=== PATIENT | female | born 1985 | race Caucasian/White ===

== ENCOUNTER 2018-09-17 17:53 | Outpatient (CLI) | payer MEDICAID ==
--- NOTE | 2018-09-17 20:24 | Non Stress Test Report ---
Non Stress Test Datetime Report Generated by CPN: 09/17/2018 20:24 DEMOGRAPHIC EGA NST: 35.4 INDICATION Indication for Study: Intrauterine Growth Restriction MONITORING Monitor Explained: Monitor Explained; Test Explained; Patient Verbalized Understanding Time on Monitor: 09/17/2018 18:07 Time off Monitor: 09/17/2018 19:45 NST Duration: 98 NST INTERVENTIONS NST Interventions: PO Hydration; Reposition Patient Physician Notified NST: DrBill CaldwellPat BABY A: [id number] BABY A Movement : Present Contraction Frequency : 0 FHR Baseline : 145 Accelerations : 15X15 Decelerations : None Variability : Moderate 6-25bpm NST Review: Meets Criteria for Reactive NST NST Review and Verified By : Jean Marie Wells RN Results: Reactive NST COMMENTS NST Comments: Patient had a BPP as well which was 8 out of 8 NST REPORT Report Trigger: Send Report
--- NOTE | 2018-09-17 20:54 | RADIOLOGY REPORT (SQ) ---
EXAM DESCRIPTION: US BIOPHYSICAL PROFILE WITHOUT NON STRESS TEST COMPLETED DATE/TME: 09/17/2018 00:00 CLINICAL HISTORY: 33 years, Female, non reactive NST, BPP COMPARISON: TECHNIQUE: LIMITATIONS: None. FINDINGS: Biophysical profile score: tone: 2. movement: 2. breathin. Fluid volume: 2. Biophysical profile score is 8/8. heart rate 147 bpm. Presentation is cephalic. IMPRESSION: Normal exam. copyright 2010 [employer]- All Rights Reserved
== END 2018-09-17 20:17 | disposition home or self-care (01) ==
LOC: LC 17:53
PROVIDERS: ATTEND Student in an Organized Health Care Education/Training Program
DX: Z34.93 Encounter for supervision of normal pregnancy, unspecified, third trimester (principal)
CPT/HCPCS: 76819

== ENCOUNTER 2018-10-04 13:49 | Outpatient (CLI) | payer MEDICAID ==
--- NOTE | 2018-10-04 14:26 | Non Stress Test Report ---
Non Stress Test Datetime Report Generated by CPN: 10/04/2018 14:25 DEMOGRAPHIC EGA NST: 38.0 INDICATION Indication for Study: Intrauterine Growth Restriction Indication for Study (NST) Other: IUGR MONITORING Monitor Explained: Monitor Explained; Test Explained; Patient Verbalized Understanding Time on Monitor: 10/04/2018 13:58 Time off Monitor: 10/04/2018 14:19 NST Duration: 21 NST INTERVENTIONS NST Interventions: PO Hydration; Reposition Patient Physician Notified NST: Amado BABY A: [id number] BABY A Contraction Frequency : 0 FHR Baseline : 135 Accelerations : 15X15 Decelerations : None Variability : Moderate 6-25bpm NST Review: Meets Criteria for Reactive NST NST Review and Verified By : SVance, RNC NST Results: Reactive NST REPORT Report Trigger: Send Report
== END 2018-10-04 14:22 | disposition home or self-care (01) ==
LOC: LC 13:49
PROVIDERS: ATTEND Obstetrics & Gynecology
PROC: 4A1HXCZ Monitoring of Products of Conception, Cardiac Rate, External Approach (ICD-10-PCS; principal; 2018-10-04)
DX: O47.1 False labor at or after 37 completed weeks of gestation (principal); Z3A.38 38 weeks gestation of pregnancy
CPT/HCPCS: 59025

== ENCOUNTER 2018-10-06 21:15 | Inpatient (IN) | payer MEDICAID ==
[2018-10-06] MEDS ORDERED: OXYTOCIN 10 UNIT/ML VIAL ONE (21:21)
[2018-10-06] MEDS ORDERED: LIDOCAINE 1% INJ-PF (10 MG/ML) 30 ML SDV ONE (21:21)
[2018-10-06] MEDS ORDERED: OXYTOCIN/NORMAL SALINE 20 UNIT/1,000 ML RTUINJ ONE (21:21)
[2018-10-06] MEDS ORDERED: MISOPROSTOL 0.2 MG TABLET ONE (21:21)
[2018-10-06] MEDS ORDERED: MAG HYDROX/AL HYDROX/SIMETH SUSP 30 ML UDCUP PO PRN (21:25)
[2018-10-06] MEDS ORDERED: DINOPROSTONE 10 MG VAGINAL INSERT.SR PV PRN (21:25)
[2018-10-06] MEDS ORDERED: ACETAMINOPHEN 325 MG TABLET PO PRN (21:25)
[2018-10-06] MEDS ORDERED: RINGERS SOLUTION,LACTATED 300 ML IV ONE ×2 (21:25)
[2018-10-06] MEDS ORDERED: ZOLPIDEM TARTRATE 5 MG TABLET PO PRN (21:25)
[2018-10-06] MEDS ORDERED: RINGERS SOLUTION,LACTATED 1,000 ML IV PRN (21:25)
--- NOTE | 2018-10-06 21:47 | Admission Physical ---
Datetime Report Generated by CPN: 10/06/2018 21:47 CURRENT ADMISSION Chief Complaint: Scheduled Induction of Labor Indication for Induction: IUGR; Indicated by Testing Admit Impression : Term, Intrauterine ; No Active Labor; Intact Membranes; Induction of Labor Admit Plan: Admit to Unit; Initiate Labor Induction Protocol ALLERGIES Medication Allergies: No Medication Allergies: Milk Containing Products (10/06/2018) Latex: No Latex Allergies Food Allergies: Dairy Environmental Allergies: N/A OBSTETRICAL HISTORY EDC: 10/18/2018 00:00 : 2 Para: 1 PHYSICAL EXAM General: Normal HEENT: Normal Neurologic: Normal Thyroid: Deferred Heart: Normal Lungs: Normal Breast: Deferred Back: Normal Abdomen: Normal Genitourinary Exam: Normal Extremities: Normal DTRs: Normal Pelvic Type: Adequate Vital Signs: Reviewed VAGINAL EXAM Dilatation: 1 Effacement: 0 Station: -3 Contraction Comments: none MEMBRANES Membranes: Intact FETUS A EGA: 38.2 Monitoring: External US FHR- Baseline: 125 Variability: Moderate 6-25bpm Accelerations: 15X15 Decelerations: None FHR Category: Category I Presentation: Vertex Admit Comment: 33yo at 38+2ega presents for IOL due to IUGR less than 5% (approx 4#). +AFP for trisomy 18 - normal informaseq. H/o asthma. Admit for IOL due to IUGR with cervidil. Anticipate . GBS negative. INFORMED CONSENT Informed Consent Obtained: Vaginal Delivery; Induction of Labor; Risks, Benefits and Alternatives Discussed Signature: with User ID: [email or web address]
[2018-10-06 21:52] LABS: APPEARANCE,URINE CLOUDY; BILIRUBIN,URINE NEGATIVE (NEGATIVE); COLOR,URINE YELLOW; GLUCOSE, URINE NEGATIVE (NEGATIVE); KETONES,URINE NEGATIVE (NEGATIVE); LEUKOCYTE ESTERASE,URINE TRACE (NEGATIVE); NITRITE,URINE NEGATIVE (NEGATIVE); PROTEIN,URINE NEGATIVE (NEGATIVE); URINE SPECIFIC GRAVITY 1.011; UROBILINOGEN,URINE NEGATIVE mg/dL (<2.0)
[2018-10-06] MEDS ORDERED: DINOPROSTONE 10 MG VAGINAL INSERT.SR ONE (21:59)
[2018-10-06 22:02] LABS: HEMATOCRIT 34.2 % (36.0-47.0); HEMOGLOBIN 11.8 g/dL (12.0-15.5); MEAN CORPUSCULAR HEMOGLOBIN 31.2 pg (27.0-33.4); MEAN CORPUSCULAR HGB CONC 34.6 g/dL (32.0-36.0); MEAN CORPUSCULAR VOLUME 90 fl (80-97); PLATELET COUNT 150 10^3/uL (150-450); RED BLOOD COUNT 3.78 10^6/uL (3.72-5.28); RED CELL DISTRIBUTION WIDTH 13.3 % (11.5-14.0); WHITE BLOOD COUNT 14.6 10^3/uL (4.0-10.5)
[2018-10-06] MEDS ORDERED: ZOLPIDEM TARTRATE 5 MG TABLET ONE (23:43)
[2018-10-06] MEDS: RINGERS SOLUTION,LACTATED 1,000 ML IV PRN (23:47)
[2018-10-07] MEDS ORDERED: ACETAMINOPHEN 325 MG TABLET ONE (05:50)
[2018-10-07] MEDS: RINGERS SOLUTION,LACTATED 1,000 ML IV PRN ×4 (05:58→16:26)
[2018-10-07] MEDS ORDERED: ACETAMINOPHEN 325 MG TABLET PO ONE (06:00)
[2018-10-07] MEDS ORDERED: NALBUPHINE HCL INJ 10 MG/1 ML AMPULE INJ ONE (11:44)
[2018-10-07] MEDS ORDERED: NALBUPHINE HCL INJ 10 MG/1 ML AMPULE ONE (11:47)
--- NOTE | 2018-10-07 14:26 | L&D Progress Notes ---
PROGRESS NOTES Datetime Report Generated by CPN: 10/07/2018 14:26 PROGRESS NOTE Impression: Reassuring Heart Rate Procedures: Sterile Vag Exam Plan: Continue Present Management; Induction Informed Consent Obtained: Vaginal Delivery Informed Consent Obtained: Vaginal Delivery; Induction of Labor; Risks, Benefits and Alternatives Discussed Vital Signs : Reviewed Comment: VE= 1+/80/vtx/0, breathing with uc's, cat 1 strip, uc's q 3-4 min, minimal cx change but more effacement, POC discussed, will get epidural and start Pitocin VAGINAL EXAM Dilatation: 1 Effacement: 0 Station: -3 Contractions: none LAST VAGINAL EXAM-NURSING Dilitation: 1.0 Dilitation: 2-3 Dilitation: 1.0 Effacement: 80 Effacement: 50 Effacement: 0 Station: 0 Station: -3 Station: -2 Contractions: toco adjusted MEMBRANES Membranes: Intact FETUS A Monitoring: External US Decelerations: None Presentation: Vertex SIGNATURE SIGNATURE: [id number];[id number];[id number] SIGNATURE: [id number];14,[id number] SIGNATURE: [id number] SIGNATURE: [id number] Assignment: Miya Garland MD Signature: with User ID: [email or web address] : with User ID: [email or web address]
[2018-10-07] MEDS ORDERED: EPHEDRINE SULFATE INJ 50 MG/1 ML AMPULE ONE (14:36)
[2018-10-07] MEDS ORDERED: BUPIVACAINE HCL 0.25 % INJ/PF (2.5 MG/1 ML) 30 ML VIAL ONE (14:37)
[2018-10-07] MEDS ORDERED: FENTANYL/BUPIVACAINE/NS/PF 300 MCG/150 ML RTUINJ EPI ONE (14:37)
[2018-10-07] MEDS ORDERED: OXYTOCIN/NORMAL SALINE 0 UNIT/0 ML RTUINJ ONE (16:32)
--- NOTE | 2018-10-07 16:40 | L&D Progress Notes ---
PROGRESS NOTES Datetime Report Generated by CPN: 10/07/2018 16:40 PROGRESS NOTE Impression: Reassuring Heart Rate Plan: Continue Present Management; Induction Informed Consent Obtained: Vaginal Delivery Vital Signs : Reviewed; Within Normal Limits Comment: Comfortable with epidural, Cat 1 strip, irreg uc's, will start Pitocin Anticipate FETUS A Monitoring: External US Variability: Moderate 6-25bpm Accelerations: 15X15 Decelerations: None FHR Category: Category I FETUS C SIGNATURE: [id number];[id number];10,[id number] Assignment: Miya Garland MD Signature: with User ID: [email or web address] : with User ID: [email or web address]
--- NOTE | 2018-10-07 21:16 | L&D Progress Notes ---
PROGRESS NOTES Datetime Report Generated by CPN: 10/07/2018 21:16 PROGRESS NOTE Impression: Normal Progression of Labor Procedures: Artificial ROM Plan: Continue Present Management Vital Signs : Reviewed; Within Normal Limits Comment: Pt comfortable, s/p epidural. AROM-blood tinged; will re-start pitocin in 1/2 hr. VAGINAL EXAM Dilatation: 3 Effacement: 50 Station: -3 Contractions: q 2-3 min Dilitation: 3.0 Dilitation: 1.5 Dilitation: 3.0 Effacement: 50 Effacement: 50 Effacement: 80 Station: -1 Station: -1 Station: -1 FETUS A FHR - Baseline: 150s Monitoring: External US Variability: Moderate 6-25bpm Accelerations: 15X15 Decelerations: None FHR Category: Category I FHR Comments: a few late decels prior to cervical check : 38.3 FETUS C SIGNATURE: [id number];14,[id number];13,[id number] Signature: with User ID: [email or web address]
[2018-10-08] MEDS: RINGERS SOLUTION,LACTATED 1,000 ML IV PRN ×3 (02:50→06:18)
[2018-10-08] MEDS ORDERED: FENTANYL/BUPIVACAINE/NS/PF 300 MCG/150 ML RTUINJ EPI ONE (07:04)
--- NOTE | 2018-10-08 11:21 | Delivery Summary ---
Del Sum A-C Datetime Report Generated by CPN: 10/08/2018 11:21 DELIVERY PERSONNEL DELIVERY PERSONNEL: [id number] Delivery Doctor:: Darby Garcia CNM Labor and Delivery Nurse:: Lili Ann RN Nursery Nurse:: Marianna Reyes RN Operator/HIGH SCHOOL ASSISTANT FOOTBALL COACH: Bhavani Cuevas CNA II Operator/HIGH SCHOOL ASSISTANT FOOTBALL COACH: Melvina Wynn, MILLING PLANER OPERATOR MATERNAL INFORMATION Delivery Anesthesia: Epidural Medications After Delivery: Pitocin Drip 20 Units/1000ml NSS Maternal Complications: None Provider Comments: SVDVM over intact perineum with Rt compound, post shoulder del first. Loose nuchal cord. vigorous, to mothers abd. Minimal bleeding, spont placenta via pascal. No sutures needed, bilat periurethral lacs. Mother and stable. LABOR SUMMARY EDC: 10/18/2018 00:00 Attempted: No Labor Anesthesia: Epidural LABOR INFORMATION Reason for Induction: Intrauterine Growth Retardation Onset of Labor: 10/08/2018 04:13 Complete Dilatation: 10/08/2018 09:05 Cervical Ripening Agents: Cervidil Oxytocin: N/A Group B Beta Strep: negative Steroids Given: None Reason Steroids Not Administered: Not Applicable MEMBRANES Membranes Rupture Method: Artificial Rupture of Membranes: 10/08/2018 21:00 Length of Rupture (hr): -11.75 Amniotic Fluid Color: Bloody Amniotic Fluid Amount: Small Amniotic Fluid Odor: Normal STAGES OF LABOR Stage 1 hr: 4 Stage 1 min: 52 Stage 2 hr: 0 Stage 2 min: 10 Stage 3 hr: 0 Stage 3 min: 11 Total Time in Labor hr: 5 Total Time in Labor min: 13 VAGINAL DELIVERY Episiotomy: None Laceration #1: Periurethral Laceration Extension #1: First Degree Laceration Repair: Not Applicable Laceration Repair Note: none needed Sponge Count Correct: N/A Sharps Count Correct: N/A CSECTION DELIVERY Primary Indication: N/A BABY A INFORMATION Infant Delivery Date/Time: 10/08/2018 09:15 Method of Delivery: Vaginal Born in Route : No : N/A Forceps: N/A Vacuum Extraction: N/A Shoulder Dystocia : No PRESENTATION/POSITION BABY A Presentation: Cephalic Cephalic Presentation: Vertex Breech Presentation: N/A PLACENTA INFORMATION BABY A Placenta Delivery Time : 10/08/2018 09:26 Placenta Method of Delivery: Spontaneous Placenta Status: Delivered SCORES BABY A Heart Rate 1 min: >100 bpm Resp Effort 1 min: Good Cry Reflex Irritability 1 min: Cough or Sneeze or Pulls Away Muscle Tone 1 min: Active Motion Color 1 min: Body Vill[place], Extremities Blue Resuscitation Effort 1 min: N/A SCORE 1 MIN: 9 Heart Rate 5 min: >100 bpm Resp Effort 5 min: Good Cry Reflex Irritability 5 min: Cough or Sneeze or Pulls Away Muscle Tone 5 min: Active Motion Color 5 min: Completely Villard Resuscitation Effort 5 min: N/A SCORE 5 MIN: 10 INFANT INFORMATION BABY A Gestational Age at Delivery: 38.4 Gestational Status: Early Term- 37- 38.6 Weeks Infant Outcome : Liveborn Condition : Stable Sex: Male IDENTIFICATION BABY A ID Band Number: [id number] Mother's Name Verified: Yes RN Verifying : Maximiliano Ann, RN/ EBill Wynn, MILLING PLANER OPERATOR WEIGHT/LENGTH BABY A Infant Birthweight (gm): 2485 Weight (lb): 5 Infant Weight (oz): 8 Infant Length (in): 18.50 Length (cm): 46.99 CORD INFORMATION BABY A No. Cord Vessels: 3 Nuchal Cord : Around Neck x1, Loose Cord Blood Taken: Yes-For Eval (Mom's Blood Type - or O+) Infant Suction: None ASSESSMENT BABY A Complications: Multiple Variable Decels Physical Findings at Delivery: Within Normal Limits Respirations: Appears Normal Skin to Skin: Yes Precision Grinder/ALS Called : No Infant Care By: Zayda Reyes RN Transferred To: Remains with Mother SIGNATURES Assignment: Evelyn Fischer MD Signature: with User ID: [email or web address] : with User ID: [email or web address] : I was personally available for consultation and serving as supervising physician for the MLP.
[2018-10-08] MEDS ORDERED: ACETAMINOPHEN WITH CODEINE #3 TABLET PO PRN ×2 (14:21)
[2018-10-08] MEDS ORDERED: BENZOCAINE/MENTHOL AEROSOL SPRAY 56 ML TOP PRN (14:21)
[2018-10-08] MEDS ORDERED: DIBUCAINE 1% OINTMENT 28 GM TP PRN (14:21)
[2018-10-08] MEDS ORDERED: OXYTOCIN/NORMAL SALINE 20 UNIT/1,000 ML RTUINJ IV PRN (14:21)
[2018-10-08] MEDS ORDERED: DIPH/PERTUSS(ACELL)/TETANUS VAC/PF 0.5 ML SYR (>=10YO) IM PRN (14:21)
[2018-10-08] MEDS ORDERED: MEASLES,MUMPS&RUBELLA VACC/PF 0.5 ML VIAL SUBCUT PRN (14:21)
[2018-10-08] MEDS: IBUPROFEN 800 MG TABLET PO SCH ×2 (15:10→22:54)
[2018-10-08] MEDS: FERROUS SULFATE 325 MG TABLET PO SCH (18:08)
[2018-10-08] MEDS: DOCUSATE SODIUM 100 MG CAPSULE PO SCH (18:09)
[2018-10-09] MEDS: IBUPROFEN 800 MG TABLET PO SCH ×3 (05:56→21:20)
[2018-10-09 08:50] LABS: HEMATOCRIT 29.9 % (36.0-47.0); HEMOGLOBIN 10.3 g/dL (12.0-15.5); MEAN CORPUSCULAR HEMOGLOBIN 31.5 pg (27.0-33.4); MEAN CORPUSCULAR HGB CONC 34.4 g/dL (32.0-36.0); MEAN CORPUSCULAR VOLUME 92 fl (80-97); PLATELET COUNT 139 10^3/uL (150-450); RED BLOOD COUNT 3.26 10^6/uL (3.72-5.28); RED CELL DISTRIBUTION WIDTH 13.4 % (11.5-14.0)
--- NOTE | 2018-10-09 09:04 | PDOC PROGRESS REPORT ---
Subjective-OB Progress Note for:: 10/09/18 Subjective: Pt doing well, no concerns. She reports light bleeding, reg diet and voiding well. Physical Exam (OB) Vital Signs: Temp Pulse Resp BP Pulse Ox 97.5 F 66 16 108/61 100 10/09/18 08:00 10/09/18 08:00 10/09/18 08:00 10/09/18 08:00 10/09/18 08:00 Intake & Output 10/08/18 10/09/18 10/10/18 06:59 06:59 06:59 Intake Total 3948 1320 Balance 3948 1320 - PIH/Pre-Eclampsia Headache: Absent Epigastric Pain: No Visual Changes: No - Lochia Lochia Amount: Scant < 10 ml Lochia Color: Rubra/Red - Abdomen Description: Soft, Round Hernia Present: No Fundal Description: Firm, Midline Fundal Height: u/u - u/2 Objective-Diagnostic Laboratory: 10/09/18 07:28 10/09/18 07:28 WBC 16.0 H RBC 3.26 L Hgb 10.3 L Hct 29.9 L MCV 92 MCH 31.5 MCHC 34.4 RDW 13.4 Plt Count 139 L Assessment and Plan(PN) - Assessment and Plan (1) Intrauterine growth restriction (IUGR) affecting care of mother Qualifiers: Fetus number: single or unspecified fetus Trimester: third trimester Qualified Code(s): O36.5930 - Maternal care for other known or suspected poor growth, third trimester, not applicable or unspecified Is this a current diagnosis for this admission?: Yes (2) Vaginal delivery Is this a current diagnosis for this admission?: Yes - Time Spent with Patient Time with patient: Less than 15 minutes Medications reviewed and adjusted accordingly: Yes - Disposition Anticipated Discharge: Home Within: within 24 hours
[2018-10-09] MEDS: DOCUSATE SODIUM 100 MG CAPSULE PO SCH ×2 (09:25→17:38)
[2018-10-09] MEDS: FERROUS SULFATE 325 MG TABLET PO SCH ×2 (09:25→17:38)
[2018-10-09] MEDS: PRENATAL VITAMIN W DHA CAPSULE PO SCH (09:25)
[2018-10-09] MEDS: SENNOSIDES/DOCUSATE 8.6-50 MG 1 EACH TABLET PO SCH (09:25)
[2018-10-10] MEDS: IBUPROFEN 800 MG TABLET PO SCH (06:18)
--- NOTE | 2018-10-10 08:16 | PDOC DISCHARGE SUMMARY ---
Final Diagnosis Discharge Date: 10/10/18 - Final Diagnosis (1) Intrauterine growth restriction (IUGR) affecting care of mother Is this a current diagnosis for this admission?: Yes (2) Vaginal delivery Is this a current diagnosis for this admission?: Yes Discharge Data - Discharge Medication Home Medications: Pnv No.121/Iron/Folic Acid [ Multivitamin Tablet] 1 each PO DAILY 09/17/18 Ranitidine HCl [Zantac 75 mg Tablet] 75 mg PO DAILY 09/17/18 Reason(s) for Admission: Induction of Labor Procedures: NST Intrapartum Procedure(s): Spontaneous Vaginal Delivery Complication(s): Laceration-Periurethral Laceration-Degree: 1st - Diagnosis Test Laboratory: 10/06/18 21:47 RBC 3.78 Hgb 11.8 L Hct 34.2 L - Discharge information/Instructions Discharge Activity: Balance Activity w/Rest, Pelvic Rest Discharge Diet: Regular Disposition: HOME, SELF-CARE Follow up with: [facility] in: 3, Weeks
[2018-10-10] MEDS: FERROUS SULFATE 325 MG TABLET PO SCH (10:25)
[2018-10-10] MEDS: SENNOSIDES/DOCUSATE 8.6-50 MG 1 EACH TABLET PO SCH (10:25)
[2018-10-10] MEDS: DOCUSATE SODIUM 100 MG CAPSULE PO SCH (10:25)
[2018-10-10] MEDS: PRENATAL VITAMIN W DHA CAPSULE PO SCH (10:26)
[2018-10-10 10:36] VITALS: BP 114/72
== END 2018-10-10 13:13 | disposition home or self-care (01) | DRG 807 ==
LOC: LR 21:15 → 2N 10-08 14:16
PROVIDERS: ADMIT Student in an Organized Health Care Education/Training Program; ATTEND Student in an Organized Health Care Education/Training Program
PROC: 10E0XZZ Delivery of Products of Conception, External Approach (ICD-10-PCS; principal; 2018-10-08)
PROC: 0UQMXZZ Repair Vulva, External Approach (ICD-10-PCS; 2018-10-08)
PROC: 4A1HXCZ Monitoring of Products of Conception, Cardiac Rate, External Approach (ICD-10-PCS; 2018-10-08)
PROC: 3E0234Z Introduction of Serum, Toxoid and Vaccine into Muscle, Percutaneous Approach (ICD-10-PCS; 2018-10-10)
PROC: 3E0234Z Introduction of Serum, Toxoid and Vaccine into Muscle, Percutaneous Approach (ICD-10-PCS; 2018-10-10)
DX: O32.6XX0 Maternal care for compound presentation, not applicable or unspecified (principal); Z37.0 Single live birth; O36.5930 Maternal care for other known or suspected poor fetal growth, third trimester, not applicable or unspecified; O26.893 Other specified pregnancy related conditions, third trimester; O69.81X0 Labor and delivery complicated by cord around neck, without compression, not applicable or unspecified; O76 Abnormality in fetal heart rate and rhythm complicating labor and delivery; O71.82 Other specified trauma to perineum and vulva; Z3A.38 38 weeks gestation of pregnancy; Z23 Encounter for immunization; Z67.41 Type O blood, Rh negative
CPT/HCPCS: 36415; 81001; 85027; 85461; 86592; 86850; 86870; 86900; 86901; 90715; J2300; J2590; J2790; J3010; J3490